=== PATIENT | female | born 1990 | race Caucasian/White ===

== ENCOUNTER 2017-09-13 08:05 | Inpatient (IN) | payer OTHER ==
[2017-09-13] MEDS ORDERED: Oxytocin in LR* 20 UNITS/1,000 ML BAG IVPB SCH ×2 (09:00→16:45)
[2017-09-13 09:17] LABS: ABS Basophils 0.1 10^3/ul (0-0.2); ABS Eosinophils 0.1 10^3/ul (0-0.6); ABS Lymphocytes 2.1 10^3/ul (1.0-4.8); ABS Monocytes 0.5 10^3/ul (0-0.8); ABS Neutrophils 7.1 10^3/ul (1.5-7.7); ABS Nucleated RBC 0 10^3/ul; Eosinophil % 0.6 % (0-6); Hematocrit 36 % (35-47); Hemoglobin 11.8 g/dl (12.0-16.0); Lymphocyte % 21.5 % (25-47); Mean Corpuscular HGB Conc 33 g/dl (31-36); Mean Corpuscular Hemoglobin 25 pg (27-31); Mean Corpuscular Volume 76 fL (80-97); Nucleated Red Blood Cells % 0; Platelet Count 228 10^3/ul (150-450); Red Blood Count 4.71 10^6/ul (4.0-5.4); Red Cell Distribution Width 15 % (10.5-15); White Blood Count 9.9 10^3/ul (3.5-10.8)
--- NOTE | 2017-09-13 11:29 | HP ---
General Information - General Information Maternal Age: 26 Grav: 2 Para: 1 SAB: 0 IEA: 0 Estimated Due Date: 09/19/17 Determined By: LMP Gestational Age in Weeks and Days: 39 Weeks and 1 Days Maternal Blood Type and Rh: O Negative - Results this Serology/RPR Result: Non-Reactive Rubella Result: Immune HBsAg Result: Negative HIV Result: Negative GBS Culture Result: Negative Past Medical History Delivery History: Hx Uncomplicated Vaginal Delivery Delivery History Comment: 2012 6lb 7oz female. ITF x 1. 1st degree lac [place] [facility] [place] Dolores Goldsmith CNM. FOB #1 Pertinent Past Medical History: See Records Past Medical History Comment: Hx menstrual migraine, worse with oral bc Pertinent Past Surgical History: None Pertinent Family History: See Records Family History Comment: HTN, cancer, liver disease, heart disease - Antepartal Records Antepartal Records: Reviewed, Uncomplicated - Low lying placenta resolved 07/25/2017. Rh negative. RhoGAM received 28 weeks 06/27/2017 Review of Systems Constitutional: Comfortable CV Complaint: No Respiratory: Shortness of Breath: No Gastrointestinal: No Nausea/Vomiting, Normal Bowel Movement Genitourinary: No Dysuria, No Bleeding, No Leaking Fluid Musculoskeletal: No Complaint Neurological: No Headache Movement: Normal Exam Allergies/Adverse Reactions: Allergies Adhesive Tape Allergy (Severe, Verified 03/11/16 18:19) Hives MS Latex [Latex] Allergy (Unknown, Verified 03/11/16 18:19) Unknown Reaction Details MS Penicillins [Penicillins] Allergy (Unknown, Verified 03/11/16 18:19) Unknown Reaction Details MS Sulfa Drugs [Sulfa Drugs] Allergy (Unknown, Verified 03/11/16 18:19) Unknown Reaction Details BP 117/80 HR 99 RR 18 T 98.6 Lab Values - Entire Visit: Laboratory Tests 09/13/17 09/13/17 09:00 09:00 WBC 9.9 RBC 4.71 Hgb 11.8 L Hct 36 MCV 76 L MCH 25 L MCHC 33 RDW 15 Plt Count 228 MPV 8.0 Neut % (Auto) 71.7 Lymph % (Auto) 21.5 L [place] % (Auto) 5.1 Eos % (Auto) 0.6 Baso % (Auto) 1.1 Absolute Neuts (auto) 7.1 Absolute Lymphs (auto) 2.1 Absolute Monos (auto) 0.5 Absolute Eos (auto) 0.1 Absolute Basos (auto) 0.1 Absolute Nucleated RBC 0 Nucleated RBC % 0 Blood Type O Negative Antibody Screen Positive Antibody Identification Anti-D Direct Antiglob Test Negative - Measurements Height: 4 ft 9 in Weight: 169 lb Weight in lbs: 169 Body Mass Index (BMI): 36.6 Pre- Weight: 150 lb 0.002 oz Weight Gained This : 18.999 lbs and 0.014 ozs - Exam Abdomen: No Upper Quadrant Pain Breast: Breast Exam Deferred CVA: No CVA Tenderness Extremities: No Edema Heart: Normal Rhythm/Heart Sounds HEENT: No Significant Findings Lungs: Clear Bilaterally Rectal: Rectal Exam Deferred Reflexes: DTR 2+ Thyroid: No Thyromegaly Other Exam Findings: Poor dentition - Cervical Exam 3cm/70%/vtx -1 Trevino's score: 8. Favorable for induction - Abdominal Exam Abdomen Exam: Non-Tender, Fundal Height Consistent with Dates - Membranes Membrane Status: Intact - Ultrasound/Biophysical Profile Ultrasound Status: Not Done EFM Findings - External Monitor Findings Baseline Heart Rate: 150 External Monitor Findings: Accelerations Present, No Pattern of Variable or Late Decelerations, Variability Moderate, Baseline Stable External Monitor Findings Comment: No evidence of metabolic acidemia Contractions: None Assessment/Plan - Reason for Visit Reason for Visit: IUP at 39-1/7 here for elective term induction Cervix favorable No evidence of metabolic acidemia - Obstetrical Risk Factors Risk Factors Comment: None - Plan Plan: Induction Plan Comment: Admit. PARQ IV pitocin. Consider amniotomy PRN. Pt and FOB agree. Will request pain management in labor PRN. Anticipate . Dr. Aguilera aware of patient presence and condition. Agrees with plan - Date/Time of Admission Date of Admission: 09/13/17 Time of Admission: 08:45
[2017-09-13] MEDS ORDERED: fentaNYL* 50 MCG/ML 2 ML VIAL (100 MCG VIAL) ONE (19:11)
[2017-09-13] MEDS ORDERED: Phenylephrine IV* 40 MCG/ML 10 ML SYRINGE IV PUSH PRN ×2 (19:45)
[2017-09-13] MEDS ORDERED: Sodium Citrate/Citric Acid* 15 ML UDC PO PRN (19:45)
[2017-09-13] MEDS ORDERED: EPHEDrine (Pressors)* 50 MG/ML VIAL IV PUSH PRN ×2 (19:45)
[2017-09-13] MEDS ORDERED: Famotidine TAB* 20 MG PO PRN (19:45)
[2017-09-13] MEDS ORDERED: OBEPIDURAL* 250 ML EPIDURAL SCH (20:00)
[2017-09-14] MEDS ORDERED: Acetaminophen TAB* 325 MG PO PRN (02:34)
[2017-09-14] MEDS ORDERED: RHO D Immune Globulin (HUMAN)* 300 MCG = 1,500 I.U. INJ IM ONE (02:34)
[2017-09-14] MEDS ORDERED: Dibucaine 1% 28.35 GM TUBE PR PRN (02:34)
[2017-09-14] MEDS ORDERED: Glycerin ADULT SUPP PR PRN (02:34)
[2017-09-14] MEDS ORDERED: Witch Hazel PAD* JAR TOPICAL PRN (02:34)
[2017-09-14] MEDS ORDERED: Oxytocin in LR* 20 UNITS/1,000 ML BAG IVPB SCH (03:00)
[2017-09-14] MEDS: Ibuprofen TAB* 600 MG PO PRN ×3 (04:14→19:52)
[2017-09-14] MEDS ORDERED: Phenylephrine INJ* 10 MG/ML 1 ML VIAL (10 MG) ONE (04:59)
[2017-09-14] MEDS ORDERED: Simethicone TAB* 80 MG TAB.CHEW PO SCH (08:30)
[2017-09-14] MEDS: Docusate CAP* 100 MG PO SCH ×3 (08:59→19:52)
[2017-09-15 06:31] LABS: ABS Basophils 0 10^3/ul (0-0.2); ABS Eosinophils 0 10^3/ul (0-0.6); ABS Lymphocytes 2.7 10^3/ul (1.0-4.8); ABS Monocytes 0.7 10^3/ul (0-0.8); ABS Neutrophils 10.2 10^3/ul (1.5-7.7); ABS Nucleated RBC 0 10^3/ul; Eosinophil % 0.3 % (0-6); Hematocrit 26 % (35-47); Hemoglobin 8.8 g/dl (12.0-16.0); Mean Corpuscular HGB Conc 34 g/dl (31-36); Mean Corpuscular Hemoglobin 25 pg (27-31); Mean Corpuscular Volume 75 fL (80-97); Mean Platelet Volume 7.4 um3 (7.4-10.4); Nucleated Red Blood Cells % 0; Platelet Count 176 10^3/ul (150-450); Red Blood Count 3.48 10^6/ul (4.0-5.4); Red Cell Distribution Width 15 % (10.5-15); White Blood Count 13.6 10^3/ul (3.5-10.8)
[2017-09-15 08:18] VITALS: BP 125/79
[2017-09-15] MEDS ORDERED: Ferrous Gluconate TAB* 324 MG TAB PO SCH (09:00)
[2017-09-15] MEDS: Ibuprofen TAB* 600 MG PO PRN (09:21)
[2017-09-15] MEDS: Docusate CAP* 100 MG PO SCH (09:22)
== END 2017-09-15 12:40 | disposition home or self-care (01) | DRG 560 ==
LOC: MCHOBOUT 08:05 → MCHOB 08:43
PROVIDERS: ADMIT Midwife; ATTEND Midwife
PROC: 10E0XZZ Delivery of Products of Conception, External Approach (ICD-10-PCS; principal; 2017-09-14)
PROC: 3E033VJ Introduction of Other Hormone into Peripheral Vein, Percutaneous Approach (ICD-10-PCS; 2017-09-14)
PROC: 10907ZC Drainage of Amniotic Fluid, Therapeutic from Products of Conception, Via Natural or Artificial Opening (ICD-10-PCS; 2017-09-14)
DX: O66.0 Obstructed labor due to shoulder dystocia (principal); O63.0 Prolonged first stage (of labor); Z3A.39 39 weeks gestation of pregnancy; Z37.0 Single live birth
CPT/HCPCS: 36415; 85025; 86850; 86870; 86880; 86900; 86901; A9270-GY; J3010